=== PATIENT | female | born 1990 | race Caucasian/White ===

== ENCOUNTER 2016-08-12 14:35 | Emergency (ER) | payer OTHER ==
[~2016-08-12] VITALS: Ht 175.3 cm; Wt 92.2 kg
[2016-08-12] MEDS ORDERED: TESSALON PERLE100 MG PO (17:05)
[2016-08-12] MEDS ORDERED: PREDNISONE20 MG PO (17:05)
[2016-08-12 17:22] VITALS: BP 133/65
== END 2016-08-12 17:24 | disposition home or self-care (01) ==
LOC: EME 14:35
DX: J45.901 Unspecified asthma with (acute) exacerbation (principal); F17.200 Nicotine dependence, unspecified, uncomplicated; F41.0 Panic disorder [episodic paroxysmal anxiety]; R00.0 Tachycardia, unspecified
CPT/HCPCS: 71020; 94640; 99281; 99284; J7512

== ENCOUNTER 2016-10-10 18:21 | Emergency (ER) | payer OTHER ==
[~2016-10-10] VITALS: Ht 175.3 cm; Wt 93.7 kg
[~2016-10-10 18:21] MED LIST: PREDNISONE20 MG PO; TESSALON PERLE100 MG PO
[2016-10-10 19:25] LABS: HEMATOCRIT 38.7 % (36.0-46.0); MCH 31.8 PG (29.0-34.0); MCHC 32.8 G/DL (30.0-36.0); MEAN PLAT.VOLUME 9.7 uM^3 (9.5-12.4); PLATELET COUNT 272 K/uL (156-360); RBC DIS.WIDTH-CV 13.3 % (11.8-14.6); RBC DIS.WIDTH-SD 46.9 % (39-53); RED BLOOD COUNT 3.99 M/uL (3.80-5.20)
[2016-10-10 19:58] LABS: QUANTITATIVE HCG 555.5 MIU/ML
[2016-10-10 20:44] LABS: CHLORIDE 109 mEq/L (99-109)
[2016-10-10 20:45] LABS: SODIUM 137 mEq/L (136-147)
[2016-10-10 20:46] LABS: GLUCOSE 100 mg/dL (70-99)
[2016-10-10 20:48] LABS: ANION GAP 12 MEQ/L (2-14)
[2016-10-10 20:50] LABS: GFR ESTIMATE (CALCULATED) > 59 mL/min/
[2016-10-10 20:51] LABS: UREA NITROGEN (BUN) 9 mg/dL (9-23)
[2016-10-10 21:02] LABS: ADD MIUA? YES; BILIRUBIN NEGATIVE; BLOOD SMALL; COLOR YELLOW ((YELLOW)); GLUCOSE (STRIP) NEGATIVE; KETONES NEGATIVE; LEUKOCYTES SMALL; NITRITE NEGATIVE; PROTEIN (STRIP) NEGATIVE; SPECIFIC GRAVITY 1.013 (1.000-1.030); UROBILINOGEN 0.2 MG/DL (0.2-1.0)
[2016-10-10 21:15] LABS: BACTERIA NONE SEEN /HPF; EPITHELIAL CELLS 1+ /HPF; MUCUS TRACE /LPF; RED BLOOD CELLS 0-5 /HPF (0-5); UCUL ADDED? NO; WHITE BLOOD CELLS 0-5 /HPF (0-5)
[2016-10-10 22:57] VITALS: BP 143/94
== END 2016-10-10 23:04 | disposition home or self-care (01) ==
LOC: EME 18:21 → RME 18:21
DX: O20.9 Hemorrhage in early pregnancy, unspecified (principal); O99.331 Smoking (tobacco) complicating pregnancy, first trimester; F17.200 Nicotine dependence, unspecified, uncomplicated; Z3A.01 Less than 8 weeks gestation of pregnancy; Z91.040 Latex allergy status
CPT/HCPCS: 76801; 80048; 81003; 84702; 85027; 86900; 86901; 99281; 99284

== ENCOUNTER 2016-11-18 08:41 | Emergency (ER) | payer OTHER ==
[~2016-11-18] VITALS: Ht 175.3 cm; Wt 88.5 kg
[2016-11-18] MEDS ORDERED: LAMICTAL25 MG PO (08:54)
[2016-11-18] MEDS ORDERED: SEROQUEL300 MG PO (08:54)
[2016-11-18] MEDS ORDERED: PRENATAL TABLE1 EAC3 PO (08:55)
[2016-11-18] MEDS ORDERED: BUSPAR15 MG PO (08:55)
[2016-11-18 10:30] LABS: ADD MIUA? YES; BILIRUBIN NEGATIVE; BLOOD SMALL; COLOR YELLOW ((YELLOW)); GLUCOSE (STRIP) NEGATIVE; KETONES NEGATIVE; LEUKOCYTES TRACE; NITRITE POSITIVE; PROTEIN (STRIP) 30; SPECIFIC GRAVITY 1.013 (1.000-1.030); UROBILINOGEN 0.2 MG/DL (0.2-1.0)
[2016-11-18 10:53] LABS: RED BLOOD CELLS RARE /HPF (0-5); WHITE BLOOD CELLS RARE /HPF (0-5)
[2016-11-18 10:54] LABS: AMORPHOUS PHOSPHATE CRYSTALS 3+; BACTERIA 2+ /HPF; EPITHELIAL CELLS RARE /HPF; MUCUS NONE SEEN /LPF
[2016-11-18 11:05] LABS: CHLORIDE 106 mEq/L (99-109); POTASSIUM 3.8 mEq/L (3.7-5.4); SODIUM 137 mEq/L (136-147)
[2016-11-18 11:07] LABS: GLUCOSE 93 mg/dL (70-99)
[2016-11-18 11:08] LABS: ANION GAP 10 MEQ/L (2-14)
[2016-11-18 11:11] LABS: GFR ESTIMATE (CALCULATED) > 59 mL/min/; UREA NITROGEN (BUN) 5 mg/dL (9-23)
[2016-11-18 11:36] LABS: QUANTITATIVE HCG 87682.3 MIU/ML
[2016-11-18] MEDS ORDERED: KEFLEX500 MG PO (12:01)
[2016-11-18 12:17] VITALS: BP 131/83
== END 2016-11-18 12:26 | disposition home or self-care (01) ==
LOC: EME 08:41
PROVIDERS: Emergency Medicine
DX: O23.41 Unspecified infection of urinary tract in pregnancy, first trimester (principal); O99.331 Smoking (tobacco) complicating pregnancy, first trimester; F17.200 Nicotine dependence, unspecified, uncomplicated; Z3A.10 10 weeks gestation of pregnancy; Z87.442 Personal history of urinary calculi
CPT/HCPCS: 80048; 81003; 84702; 99281; 99283